=== PATIENT | female | born 2000 | race Caucasian/White ===

== ENCOUNTER 2020-02-15 05:24 | Emergency (ER) | payer OTHER ==
[~2020-02-15] VITALS: Ht 165.1 cm; Wt 62.1 kg
== END 2020-02-15 06:19 | disposition home or self-care (01) ==
LOC: ER 05:24
DX: T78.1XXA Other adverse food reactions, not elsewhere classified, initial encounter (principal); L29.8 Other pruritus; L27.2 Dermatitis due to ingested food; X58.XXXA Exposure to other specified factors, initial encounter